=== PATIENT | male | born 1950 | race Caucasian/White ===

== ENCOUNTER 2016-10-03 06:20 | Emergency (ER) | payer MEDICARE, OTHER ==
[~2016-10-03] VITALS: Ht 180.3 cm; Wt 93.5 kg
[2016-10-03 06:44] LABS: BASOPHILS % (AUTO) 0 % (0-2); EOSINOPHILS # (AUTO) 0.2 10^3uL; EOSINOPHILS % (AUTO) 5 % (0-4); LYMPHOCYTES # (AUTO) 1.5 X10^3; MEAN CORPUSCULAR HEMOGLOBIN 30.6 PG (26.0-34.0); MEAN CORPUSCULAR HGB CONC 35.9 g/dL (31.0-37.0); MEAN CORPUSCULAR VOLUME 85 FL (80-100); MEAN PLATELET VOLUME 10.1 FL (6.0-9.5); MONOCYTES # (AUTO) 0.6 X10^3; MONOCYTES % (AUTO) 14 % (3-11); NEUTROPHILS # (AUTO) 2.1 X10^3; NEUTROPHILS % (AUTO) 48 % (51-67); PLATELET COUNT 157 10^3uL (150-450); WHITE BLOOD COUNT 4.43 10^3uL (4.0-11.0)
[2016-10-03 06:50] LABS: ALBUMIN 4.5 g/dL (3.4-5.0); ALKALINE PHOSPHATASE 78 U/L (38-126); ANION GAP 16.6 MEQ/L (3-15); BUN/CREATININE RATIO 19 (10-20); CALCULATED IONIZED CALCIUM 3.8 mg/dL (3.8-4.6); TOTAL PROTEIN 7.6 g/dL (6.4-8.5)
--- NOTE | 2016-10-03 06:55 | NUR ---
Nicole MAJOR TOOK OVER CARE OF PT, HAD NO QUESTIONS
--- NOTE | 2016-10-03 07:37 | NUR ---
Awaiting room assignment at [facility].
[2016-10-03 08:12] VITALS: BP 138/72
== END 2016-10-03 08:02 | disposition short-term general hospital (02) ==
LOC: EDBD 06:20 → ED 06:22
DX: R42 Dizziness and giddiness (principal); Z95.810 Presence of automatic (implantable) cardiac defibrillator
CPT/HCPCS: 36415; 71010; 80053; 84484; 85025; 93005; 93010; 99284; 99285

== ENCOUNTER → 2016-10-03 | Outpatient (CLI) | payer OTHER, MEDICARE | LOC: EMS 06:14 | PROVIDERS: ATTEND Family Medicine | DX: I49.8 Other specified cardiac arrhythmias (principal); Z95.0 Presence of cardiac pacemaker ==

== ENCOUNTER → 2016-10-26 | Outpatient (CLI) | payer OTHER, MEDICARE | LOC: RAD 13:49 | PROVIDERS: ATTEND Internal Medicine Sleep Medicine | DX: J43.9 Emphysema, unspecified (principal); J47.9 Bronchiectasis, uncomplicated; J84.10 Pulmonary fibrosis, unspecified | CPT/HCPCS: 71250 ==